=== PATIENT | female | born 1965 | race Caucasian/White ===

== ENCOUNTER 2020-10-09 07:45 | Emergency (ER) | payer OTHER ==
[~2020-10-09] VITALS: Ht 167.6 cm; Wt 52.0 kg
--- NOTE | 2020-10-09 08:50 | NUR ---
PT IS A 54F WHO STATES SHE IS UNABLE TO BARE WEIGHT ON HER LEFT KNEE AFTER IT "GAVE OUT" THIS MORNING WHILE SHE WAS WALKING. SHE DENIES TRAUMA AND THERE IS MINIMAL PAIN. SP02 AND BP MONITORS IN PLACE. CALL LIGHT WITHIN REACH.,
--- NOTE | 2020-10-09 09:31 | NUR ---
TASK RN. PT OK FOR D/C. ALEJA WRAP PLACED PER ORDRS. PT WITH STEADY GAIT UPON D/C, VERBALIZED UNDERSTANDING OF D/C ORDERS. PT HAS ALL OWN BELONGINGS UPON D/C.
== END 2020-10-09 09:37 | disposition home or self-care (01) ==
LOC: MERGE 08:58 → ED 08:58
DX: M25.562 Pain in left knee (principal); R20.0 Anesthesia of skin; I10 Essential (primary) hypertension; E11.9 Type 2 diabetes mellitus without complications; F17.210 Nicotine dependence, cigarettes, uncomplicated
CPT/HCPCS: 99283